=== PATIENT | female | born 1960 | race Caucasian/White ===

== ENCOUNTER → 2017-06-25 | Outpatient (CLI) | payer OTHER ==
--- NOTE | 2017-06-25 13:06 | REP ---
NUCLEAR GASTRIC EMPTYING SCAN: Following the oral administration of 1.1 mCi of technetium-99m sulfur colloid in two scrambled eggs and 6 ounces of water multiple images are performed of the upper abdomen in the anterior and posterior projections for 90 minutes. The gastric activity is measured. At the end of 90 minutes 56% of the ingested activity has emptied from the stomach. The T1/2 is 83 minutes. This is normal. IMPRESSION: Normal gastric emptying. Signed by Dick Ghosh MD 06/25/2017 03:31 P
--- NOTE | 2017-06-26 05:35 | REP ---
Clinical: Nausea and vomiting with history of cirrhosis and right upper quadrant pain. Technique: Ghosh scale ultrasound using curved array transducer. Findings: The spleen and pancreas are normal in contour, size, and echogenicity without focal splenic or pancreatic lesions identified. The liver demonstrates fatty infiltration without focal hepatic lesion identified. The patient is status post cholecystectomy. No biliary ductal dilatation is appreciated, and the common bile duct measures 5.8 mm diameter. The bilateral kidneys are normal in reniform shape without hydronephrosis. Right kidney measures 9.9 x 6.2 x 5.9 cm. Left kidney measures 10.1 x 5.3 x 6.4 cm. No ascites. Visualized portions of the abdominal aorta normal and measure up to 3.0 cm maximal diameter. Impression: 1. Hepatic steatosis without focal hepatic lesions identified. 2. Prior cholecystectomy. 3. No further acute pathology by ultrasound. Signed by Young Huynh MD 06/26/2017 05:26 A
== END ==
LOC: M RAD 07:37
PROVIDERS: ATTEND Internal Medicine Gastroenterology
DX: K74.0 Hepatic fibrosis (principal); K76.0 Fatty (change of) liver, not elsewhere classified; R19.7 Diarrhea, unspecified; R68.81 Early satiety; R11.2 Nausea with vomiting, unspecified; R10.11 Right upper quadrant pain

== ENCOUNTER → 2020-01-14 | Outpatient (CLI) | payer OTHER ==
--- NOTE | 2020-01-14 09:10 | REP ---
Clinical: Abdominal pain and history of cirrhosis. Technique: Real time jackman scale and color evaluation using curved array transducer. Comparison: 03/19/2018, 06/25/2017 Findings: Liver demonstrates coarsened echotexture without obvious focal hepatic lesion identified. Pancreas is limited evaluation but a small 8 mm cyst in the mid body remain essentially stable compared to prior examination. Evidence of prior cholecystectomy without biliary ductal dilatation. Common bile duct measures 4.6 mm diameter. The right kidney is normal in reniform shape without hydronephrosis and measures 10.6 x 5.7 x 5.5 cm including 1 cm complex lower pole cyst with calcification remains stable compared to 2017. No ascites. Impression: 1. Coarsened hepatic echotexture without obvious focal hepatic lesion. Electronically Signed by Young Huynh MD 01/14/2020 09:02 A
== END ==
LOC: M RAD 08:05
PROVIDERS: ATTEND Internal Medicine Gastroenterology
DX: R10.11 Right upper quadrant pain (principal); K74.0 Hepatic fibrosis; R93.3 Abnormal findings on diagnostic imaging of other parts of digestive tract; K75.81 Nonalcoholic steatohepatitis (NASH)

== ENCOUNTER → 2021-05-22 | Outpatient (CLI) | payer OTHER ==
[~2021-05-22] MED LIST: PROHANCE 279.3MG/ML 15ML VIAL As Ordered ONE; PROHANCE 279.3MG/ML 5ML VIAL As Ordered ONE
--- NOTE | 2021-05-23 14:55 | REP ---
INDICATION: PANCREATIC CYST. COMPARISON: Ultrasound [facility] 09/26/2020. TECHNIQUE: Multiple sequences obtained in the axial coronal planes prior to and following the intravenous administration of 18 mL ProHance. FINDINGS: No abnormality is seen in the liver. The patient has had a prior cholecystectomy. There is no intrahepatic or extrahepatic biliary dilatation. Spleen is normal in size with no intrinsic abnormality. The adrenal glands are normal. In the body of the pancreas there is a nonenhancing cyst which measures 8 mm in maximum diameter. This corresponds to the cyst seen on the prior ultrasound. There is also a nonenhancing 4 mm cyst in the head of the pancreas. There is no pancreatic duct dilatation. There is no pancreatic edema or inflammatory change. There is a 7 mm nonenhancing cyst in the mid right kidney. There is no hydronephrosis bilaterally. There is no adenopathy or free fluid in the abdomen. IMPRESSION: In the body of the pancreas there is a nonenhancing 8 mm cyst. In the head of the pancreas there is a 4 mm nonenhancing cyst. Recommend follow-up MRI of the pancreas with and without contrast in 1 year. <Electronically signed by Dick Ghosh > 05/23/21 [id number]
== END ==
LOC: M RAD 16:02
PROVIDERS: ATTEND Internal Medicine Gastroenterology
DX: R93.3 Abnormal findings on diagnostic imaging of other parts of digestive tract (principal); K74.00 Hepatic fibrosis, unspecified; K86.2 Cyst of pancreas
CPT/HCPCS: 74183; A9576

== ENCOUNTER → 2022-06-13 | Outpatient (CLI) | payer OTHER ==
[~2022-06-13] MED LIST changes: -PROHANCE 279.3MG/ML 15ML VIAL As Ordered ONE; +PROHANCE 279.3MG/ML 15ML VIAL ONE; -PROHANCE 279.3MG/ML 5ML VIAL As Ordered ONE; +PROHANCE 279.3MG/ML 5ML VIAL ONE
== END ==
LOC: M PLAIMG 14:53
PROVIDERS: ATTEND Internal Medicine Gastroenterology
DX: K86.2 Cyst of pancreas (principal)
CPT/HCPCS: 74183; A9576

== ENCOUNTER → 2023-12-13 | Outpatient (CLI) | payer OTHER ==
[~2023-12-13] MED LIST changes: +GASTROGRAFIN SOLUTION 30ML ONE; +ISOVUE-370 76% 100ML VIAL ONE; -PROHANCE 279.3MG/ML 15ML VIAL ONE; -PROHANCE 279.3MG/ML 5ML VIAL ONE
== END ==
LOC: M PLAIMG 07:33
PROVIDERS: ATTEND Internal Medicine Infectious Disease
DX: R10.9 Unspecified abdominal pain (principal); R50.9 Fever, unspecified; R70.0 Elevated erythrocyte sedimentation rate
CPT/HCPCS: 74170; Q9963; Q9967

== ENCOUNTER → 2024-05-27 | Outpatient (CLI) | payer OTHER | LOC: M RAD 08:08 | PROVIDERS: ATTEND Nurse Practitioner Family | DX: K86.2 Cyst of pancreas (principal) ==

== ENCOUNTER → 2024-11-27 | Outpatient (CLI) | payer MEDICARE | LOC: M RAD 08:20 | PROVIDERS: ATTEND Internal Medicine Gastroenterology | DX: K86.2 Cyst of pancreas (principal); D62 Acute posthemorrhagic anemia; R93.3 Abnormal findings on diagnostic imaging of other parts of digestive tract; K74.00 Hepatic fibrosis, unspecified; N83.8 Other noninflammatory disorders of ovary, fallopian tube and broad ligament; N20.0 Calculus of kidney ==